=== PATIENT | female | born 1940 | race Caucasian/White ===

== ENCOUNTER 2017-02-28 10:51 | Emergency (ER) | payer OTHER ==
[2017-02-28 11:00] VITALS: RESP 18; TEMP 98.2; O2SAT 95
[2017-02-28 11:47] LABS: PLATELET COUNT 209 10^3/uL (150-400)
--- NOTE | 2017-02-28 11:54 | EDPHY ---
General - History Smoking Status: Former smoker Narrative: CHIEF COMPLAINT: Chest pain, arm tingling HISTORY OF PRESENT ILLNESS: Patient presents with complaints of arm tingling and flushed sensation. She says that every mornings over the past 4-5 months when she wakes, she has this feeling of warmth and flush to the neck that radiates down the arms. It is associated with some tingling. No numbness. No pain. No weakness of the arms. No headache. She said this morning she had been reading a full medical possibly be and felt a sudden onset of chest pain. This was central. It lasted for less than 10 seconds and went away spontaneously. She has not had any return of chest pain since. No shortness of breath. No symptoms in the arm at this time. No trauma or injury. She has never been worked up for this per No other associated complaints or modifying factors REVIEW OF SYSTEMS: Ten systems reviewed and are negative unless otherwise noted in the HPI PCP: Currently in Previously saw Dr. Blackwell SPECIALISTS: None PAST MEDICAL HISTORY: No previous medical diagnoses PAST SURGICAL HISTORY: Tonsillectomy SOCIAL HISTORY: Heavy smoker, quitting 50 years ago. No alcohol. No illicit substance use. Resides in a bungalow with her at [facility] FAMILY HISTORY: Noncontributory EXAMINATION General Appearance: Alert, no distress Head: normocephalic, atraumatic Eyes: Pupils equal and round, no conjunctival pallor or injection ENT, Mouth: Mucous membranes moist Neck: Normal inspection, supple, non-tender Respiratory: Lungs are clear to auscultation. No wheeze, rhonchi or crackles Cardiovascular: Regular rate and rhythm. No Gastrointestinal: Abdomen is soft and nontender Back: non-tender, no bony abnormalities Neurological: GCS 15. Cranial nerves 2-12 grossly intact. A&O, nonfocal, normal gait. Strength is symmetric in all 4 limbs. No pronator drift. No dysmetria. Normal triceps and patellar reflexes. Skin: Warm and dry, no rash. No petechiae or purpura Extremities: Nontender, no pedal edema Psychiatric: Mood and affect normal DIFFERENTIAL DIAGNOSES: Including but not limited to anxiety, stress, radiculopathy, ACS, pneumonia, PE MDM: 12:00 p.m. Brief episode of chest pain that resolved spontaneously. Ongoing complaints of warmth and flush feeling to the arms with some paresthesia. She has a normal neuro examination at this time. No chest pain. EKG is pending as our machine have all been broken. I have ordered chest x-ray. Laboratory studies are pending. 1:05 p.m. Laboratory studies are negative including a negative troponin. Chest x-ray consistent with emphysematous appearance. This is stable in appearance from last year. I have re-evaluated the patient. She is resting comfortably. No chest pain. No symptoms of the arms. No neck. Discharged home with instructions to follow up closely with primary care physician. Strict ED precautions for any return of chest pain, weakness of the arms, neck pain. She is comfortable with this plan and discharged home stable condition. (Jim Burns) Medical Decision Makin-lead EKG interpreted by me; official reading is in trace master. My interpretation is sinus rhythm with left atrial abnormality, no acute ischemic changes. Rate 65. (Mazin Jamil) - Diagnostics Imaging Results: Imaging Impressions Chest X-Ray 02/28/17 12:09 Impression: 1. Severe chronic emphysema, with basilar pleural bleb formation raising the possibility of alpha-1 antitrypsin deficiency. 2. No pneumonia or acute process identified. - Objective Vital Signs: Initial Vital Signs Temperature (C) 36.8 C 02/28/17 10:57 Heart Rate 80 02/28/17 10:57 Respiratory Rate 18 02/28/17 10:57 Blood Pressure 117/65 02/28/17 10:57 O2 Sat (%) 95 02/28/17 10:57 O2 Delivery Mode Room Air Allergies/Adverse Reactions: No Known Allergies Allergy (Unverified 02/28/17 11:01) Home Medications: Medication Instructions Recorded NK [No Known Home Meds] 02/28/17 Laboratory Results: Laboratory Results 02/28/17 11:30 02/28/17 11:30 02/28/17 02/28/17 11:30 11:30 WBC 5.65 10^3/uL 10^3/uL (3.80-9.50) RBC 5.01 10^6/uL 10^6/uL (4.18-5.33) Hgb 15.6 g/dL g/dL (12.6-16.3) Hct 45.4 % % (38.0-47.0) MCV 90.6 fL fL (81.5-99.8) MCH 31.1 pg pg (27.9-34.1) MCHC 34.4 g/dL g/dL (32.4-36.7) RDW 14.3 % % (11.5-15.2) Plt Count 209 10^3/uL 10^3/uL (150-400) MPV 8.9 fL fL (8.7-11.7) Neut % (Auto) 54.7 % % (39.3-74.2) Lymph % (Auto) 26.2 % % (15.0-45.0) [place] % (Auto) 17.7 % H % (4.5-13.0) Eos % (Auto) 0.7 % % (0.6-7.6) Baso % (Auto) 0.5 % % (0.3-1.7) Nucleat RBC Rel Count 0.0 % % (0.0-0.2) Absolute Neuts (auto) 3.09 10^3/uL 10^3/uL (1.70-6.50) Absolute Lymphs (auto) 1.48 10^3/uL 10^3/uL (1.00-3.00) Absolute Monos (auto) 1.00 10^3/uL H 10^3/uL (0.30-0.80) Absolute Eos (auto) 0.04 10^3/uL 10^3/uL (0.03-0.40) Absolute Basos (auto) 0.03 10^3/uL 10^3/uL (0.02-0.10) Absolute Nucleated RBC 0.00 10^3/uL 10^3/uL (0-0.01) Immature Gran % 0.2 % % (0.0-1.1) Immature Gran # 0.01 10^3/uL 10^3/uL (0.00-0.10) Sodium 139 mEq/L mEq/L (134-144) Potassium 4.5 mEq/L mEq/L (3.5-5.2) Chloride 102 mEq/L mEq/L (97-110) Carbon Dioxide 24 mEq/l mEq/l (22-31) Anion Gap 13 mEq/L mEq/L (8-16) BUN 17 mg/dL mg/dL (7-23) Creatinine 1.0 mg/dL mg/dL (0.6-1.0) Estimated GFR 54 Glucose 73 mg/dL mg/dL (70-100) Calcium 9.6 mg/dL mg/dL (8.5-10.4) Total Bilirubin 0.5 mg/dL mg/dL (0.1-1.4) AST 36 IU/L IU/L (14-46) ALT 40 IU/L IU/L (9-52) Alkaline Phosphatase 81 IU/L IU/L (38-126) Troponin I < 0.012 ng/mL ng/mL (0.000-0.034) Total Protein 6.6 g/dL g/dL (6.3-8.2) Albumin 4.3 g/dL g/dL (3.5-5.0) Departure - Departure Disposition: Home, Routine, Self-Care Clinical Impression: Paresthesia and pain of both upper extremities Chest pain Qualifiers: Chest pain type: unspecified Qualified Code(s): R07.9 - Chest pain, unspecified Condition: Good Instructions: Chest Pain (ED), Emphysema (ED), Paresthesia (ED) Additional Instructions: 1. Follow up with primary care physician 2. Discussed with primary care physician the arm complaints, brief chest pain, abnormal x-ray that we discussed today 3. Return to the emergency department for any return of chest pain, shortness of breath, weakness of the arms, numbness of the arms, neck pain, difficulty moving the arms Referrals: NONE *PRIMARY CARE P,. [Primary Care Provider] - As per Instructions Bryant Rod MD [[facility] [place]] - As per Instructions Mina Mendez MD [Medical Doctor] - As per Instructions
--- NOTE | 2017-02-28 12:18 | CPEKG ---
Heart Rate: 65 RR Interval: 923 P-R Interval: 168 QRSD Interval: 60 QT Interval: 368 QTC Interval: 383 P [place]: 84 QRS [place]: 59 T Wave [place]: 73 EKG Severity - BORDERLINE ECG - EKG Impression: SINUS RHYTHM EKG Impression: PROBABLE LEFT ATRIAL ABNORMALITY EKG Impression: BORDERLINE T ABNORMALITIES, ANT-LAT LEADS Electronically Signed By: Mazin Jamil 28-Feb-2017 14:25:10
[2017-02-28 12:33] VITALS: BP 145/75; PULSE 65
== END 2017-02-28 13:34 | disposition home or self-care (01) ==
DX: R07.9 Chest pain, unspecified (principal); R20.2 Paresthesia of skin; Z87.891 Personal history of nicotine dependence

== ENCOUNTER 2018-02-02 11:08 | Emergency (ER) | payer OTHER ==
[2018-02-02 12:17] LABS: PLATELET COUNT 281 10^3/uL (150-400)
[2018-02-02] MEDS ORDERED: MAG HYDROX/AL HYDROX/SIMETH 30 ML UDCUP PO ONE (12:42)
--- NOTE | 2018-02-02 12:47 | CPEKG ---
Test Reason : OPEN Blood Pressure : / mmHG Vent. Rate : 073 BPM Atrial Rate : 073 BPM P-R Int : 160 ms QRS Dur : 067 ms QT Int : 382 ms P-R-T Axes : 083 030 076 degrees QTc Int : 421 ms Sinus rhythm Probable left atrial enlargement Confirmed by Mazin Jamil ([id number]) on 02/02/2018 12:47:25 PM Referred By: Confirmed By:Mazin Jamil
--- NOTE | 2018-02-02 12:47 | EDPHY ---
H & P Time Seen by Provider: 02/02/18 12:22 HPI/ROS: CHIEF COMPLAINT: Severe abdominal pain HISTORY OF PRESENT ILLNESS: History limited by the patient's memory loss which is chronic but assisted by the daughter who was on the phone. Apparently she was at home and about 30 min of severe epigastric pain which brought her to her knees at assisted living. She was sitting in a chair at that time. No vomiting or diarrhea reported. She says she feels very comfortable now. This is been associated with some severe anxiety and dizziness ever since her in August. She is currently being weaned off Ativan. REVIEW OF SYSTEMS: Eye: No symptoms ENT: no sore throat Cardiac: no chest pain or syncope Pulmonary: no cough or SOB Abdomen: HPI Musculoskeletal: no back pain Skin: no rash Neuro: no headache Constitutional: no fever : no urinary symptoms A comprehensive 10 point review of systems is otherwise negative aside from elements mentioned in the history of present illness. PAST MEDICAL HISTORY: Includes left patellar repair, vertigo, appendectomy Social history: Daughter supplying history via telephone, no alcohol General Appearance: Alert and conversant, cooperative. Eyes: No scleral icterus. Pupils equal reactive extraocular motion intact. ENT, Mouth: Normal mucous membranes. Respiratory: Normal respiratory effort, breath sounds equal, lungs are clear to auscultation. Cardiovascular: Regular rate and rhythm. Gastrointestinal: No tenderness, no Chester sign, no rebound or guarding, not distended. Bowel sounds present. Neurological: Alert, face symmetric, normal motor and sensory in extremities. Skin: Warm and dry, no rashes. Musculoskeletal: No peripheral edema. Psychiatric: Not agitated. Emergency Department course/MDM: 12-lead EKG interpreted by me; official reading is in computer system. My interpretation is sinus rhythm rate 73 with left atrial enlargement, no ischemic changes. More likely to be GERD or pancreas or other intestinal or liver. Plan for LFTs and lipase, abdominal ultrasound, GI cocktail. I think ACS or [place] or pulmonary problem are all unlikely at this time. 1355: Normal ultrasound per Paz. Re-evaluated at this time, the patient is asymptomatic. I think the lipase does not represent primary pancreatitis, she is hungry, I think it is reasonable for to be discharged and she can get her labs rechecked office visit next week. Less than 2x upper normal limit. Discussed with the patient and the daughter in person at this time. Discussed after her departure with Dr. Stephanie Wick her PCP to arrange follow- up next week. Smoking Status: Former smoker Constitutional: Initial Vital Signs Temperature (C) 36.4 C 02/02/18 11:12 Heart Rate 70 02/02/18 11:12 Respiratory Rate 16 02/02/18 11:12 Blood Pressure 147/79 H 02/02/18 11:12 O2 Sat (%) 97 02/02/18 11:12 O2 Delivery Mode Room Air Allergies/Adverse Reactions: No Known Allergies Allergy (Verified 02/02/18 11:12) Home Medications: Medication Instructions Recorded NK [No Known Home Meds] 02/28/17 Medical Decision Making - Diagnostics Imaging Results: Imaging Impressions Abdomen Ultrasound 02/02/18 12:42 Impression: No visible etiology for the patient's pain. Findings discussed with ED REYNOSO 02/02/2018 at 13:50. - Data Points Laboratory Results: Laboratory Results 02/02/18 11:47 02/02/18 11:47 02/02/18 02/02/18 02/02/18 12:00 11:47 11:47 WBC RBC Hgb Hct MCV MCH MCHC RDW Plt Count MPV Neut % (Auto) Lymph % (Auto) [place] % (Auto) Eos % (Auto) Baso % (Auto) Nucleat RBC Rel Count Absolute Neuts (auto) Absolute Lymphs (auto) Absolute Monos (auto) Absolute Eos (auto) Absolute Basos (auto) Absolute Nucleated RBC Immature Gran % Immature Gran # Sodium 140 mEq/L mEq/L (135-145) Potassium 3.8 mEq/L mEq/L (3.3-5.0) Chloride 104 mEq/L mEq/L (97-110) Carbon Dioxide 28 mEq/l mEq/l (22-31) Anion Gap 8 mEq/L mEq/L (8-16) BUN 17 mg/dL mg/dL (7-23) Creatinine 0.9 mg/dL mg/dL (0.6-1.0) Estimated GFR > 60 Glucose 72 mg/dL mg/dL (70-100) Calcium 9.5 mg/dL mg/dL (8.5-10.4) Total Bilirubin 0.7 mg/dL mg/dL (0.1-1.4) Conjugated Bilirubin 0.1 mg/dL mg/dL (0.0-0.5) Unconjugated Bilirubin 0.6 mg/dL mg/dL (0.0-1.1) AST 41 IU/L IU/L (14-46) ALT 41 IU/L IU/L (9-52) Alkaline Phosphatase 85 IU/L IU/L (38-126) Troponin I < 0.012 ng/mL ng/mL (0.000-0.034) Total Protein 6.0 g/dL L g/dL (6.3-8.2) Albumin 3.8 g/dL g/dL (3.5-5.0) Lipase 527 IU/L H IU/L (23-300) 02/02/18 11:47 WBC 10.04 10^3/uL H 10^3/uL (3.80-9.50) RBC 4.88 10^6/uL 10^6/uL (4.18-5.33) Hgb 14.8 g/dL g/dL (12.6-16.3) Hct 44.4 % % (38.0-47.0) MCV 91.0 fL fL (81.5-99.8) MCH 30.3 pg pg (27.9-34.1) MCHC 33.3 g/dL g/dL (32.4-36.7) RDW 13.7 % % (11.5-15.2) Plt Count 281 10^3/uL 10^3/uL (150-400) MPV 9.1 fL fL (8.7-11.7) Neut % (Auto) 73.1 % % (39.3-74.2) Lymph % (Auto) 17.9 % % (15.0-45.0) [place] % (Auto) 6.9 % % (4.5-13.0) Eos % (Auto) 1.4 % % (0.6-7.6) Baso % (Auto) 0.3 % % (0.3-1.7) Nucleat RBC Rel Count 0.0 % % (0.0-0.2) Absolute Neuts (auto) 7.34 10^3/uL H 10^3/uL (1.70-6.50) Absolute Lymphs (auto) 1.80 10^3/uL 10^3/uL (1.00-3.00) Absolute Monos (auto) 0.69 10^3/uL 10^3/uL (0.30-0.80) Absolute Eos (auto) 0.14 10^3/uL 10^3/uL (0.03-0.40) Absolute Basos (auto) 0.03 10^3/uL 10^3/uL (0.02-0.10) Absolute Nucleated RBC 0.00 10^3/uL 10^3/uL (0-0.01) Immature Gran % 0.4 % % (0.0-1.1) Immature Gran # 0.04 10^3/uL 10^3/uL (0.00-0.10) Sodium Potassium Chloride Carbon Dioxide Anion Gap BUN Creatinine Estimated GFR Glucose Calcium Total Bilirubin Conjugated Bilirubin Unconjugated Bilirubin AST ALT Alkaline Phosphatase Troponin I Total Protein Albumin Lipase Medications Given: Discontinued Medications Al Hydroxide/Mg Hydroxide (Maalox Susp) 30 ml PO ONCE ONE Stop: 02/02/18 12:43 Last Admin: 02/02/18 13:03 Dose: 30 ml Departure - Departure Disposition: Home, Routine, Self-Care Clinical Impression: Abdominal pain Qualifiers: Abdominal location: epigastric Qualified Code(s): R10.13 - Epigastric pain Condition: Good Instructions: Acute Abdominal Pain (ED) Referrals: Stephanie Wick MD [Medical Doctor] - As per Instructions (Please follow-up with your primary care physician next week. you did have a lipase slightly elevated at 527, consider having it rechecked if you have symptoms)
[2018-02-02 14:24] VITALS: BP 125/77
== END 2018-02-02 14:24 | disposition home or self-care (01) ==
LOC: EDUNIT# → SUPCPDRO 11:08
DX: R10.13 Epigastric pain (principal)